=== PATIENT | male | born 1995 | race Caucasian/White ===

== ENCOUNTER 2016-12-30 03:28 | Emergency (ER) | payer BC ==
[~2016-12-30] VITALS: Ht 188 cm; Wt 104.5 kg
[2016-12-30] MEDS ORDERED: KETOROLAC 30 MG/ML (TORADOL) 1 ML VIAL IV ONE (04:00)
[2016-12-30 04:07] LABS: BASOPHILS % (AUTO) 0 % (0-2); EOSINOPHILS # (AUTO) 0.6 10^3uL; EOSINOPHILS % (AUTO) 4 % (0-4); LYMPHOCYTES # (AUTO) 3.3 X10^3; MEAN CORPUSCULAR VOLUME 88 FL (80-100); MEAN PLATELET VOLUME 9.9 FL (6.0-9.5); MONOCYTES % (AUTO) 7 % (3-11); NEUTROPHILS # (AUTO) 9.6 X10^3; NEUTROPHILS % (AUTO) 66 % (51-67); PLATELET COUNT 306 10^3uL (150-450); WHITE BLOOD COUNT 14.54 10^3uL (4.0-11.0)
[2016-12-30 04:09] LABS: MEAN CORPUSCULAR HEMOGLOBIN 31.6 PG (26.0-34.0); MEAN CORPUSCULAR HGB CONC 36.1 g/dL (31.0-37.0)
[2016-12-30 04:16] LABS: ALBUMIN 4.4 g/dL (3.4-5.0); ALKALINE PHOSPHATASE 84 U/L (38-126); ANION GAP 18.5 MEQ/L (3-15); BUN/CREATININE RATIO 15 (10-20); CALCULATED IONIZED CALCIUM 3.7 mg/dL (3.8-4.6); TOTAL PROTEIN 7.5 g/dL (6.4-8.5)
[2016-12-30 04:31] LABS: AMPHETAMINE SCREEN, URINE Positive (Negative); CANNABINOID SCREEN, URINE Negative (Negative); METHAMPHETAMINE SCREEN URINE S NEGATIVE (NEGATIVE); OPIATE SCREEN URINE Negative (Negative); PROPOXYPHENE STAT NEGATIVE (NEGATIVE)
[2016-12-30 06:41] VITALS: BP 129/92
== END 2016-12-30 06:30 | disposition home or self-care (01) ==
LOC: ED 03:31
DX: R07.89 Other chest pain (principal); F17.290 Nicotine dependence, other tobacco product, uncomplicated
CPT/HCPCS: 36415; 71020; 80053; 80307; 80320; 84484; 85025; 96374; 99285; J1885; 93005; 93010; 99284